=== PATIENT | female | born 1995 | race Caucasian/White ===

== ENCOUNTER 2023-01-09 13:43 | Outpatient (CLI) | payer BC, SELFPAY ==
[2023-01-09 14:57] LABS: Clue Cells No Clue Cells Seen (None Seen); Trichomonas No Trichomonas Seen (None Seen); Yeast No Yeast Seen (None Seen)
[2023-01-09 16:27] LABS: Chlamydia DNA Amplified* NOT DETECTED (No Detected); GC DNA Amplified* NOT DETECTED (No Detected)
== END 2023-01-09 13:44 | disposition home or self-care (01) ==
PROVIDERS: PCP Family Medicine; Visit Provider Family Medicine
DX: N87.9 Dysplasia of cervix uteri, unspecified (principal); Z72.51 High risk heterosexual behavior
CPT/HCPCS: 87210; 87491; 87591

== ENCOUNTER 2024-02-10 00:27 | Outpatient (CLI) | payer BC, SELFPAY ==
[2024-02-10 00:53] VITALS: BP 116/74; PULSE 101
--- NOTE | 2024-02-10 01:41 | PC.OBNST ---
NST Note NST Note Start: 02/09/24 23:53 Freq: ONCE Status: Active Protocol: Document 02/10/24 01:36 AM (Rec: 02/10/24 01:37 AM [id number]) NST Note 3 Para (# of births) 1 EDC 02/04/24 Gestational Age In Weeks & Days 40 Weeks & 6 Days Patient Presented with Complaint(s) of Contractions/cramping Reactive Yes Appropriate for Gestational Age Yes RN AMiner RNC Date 02/10/24 Reactive Yes Appropriate for Gestational Age Yes RN LRingel RN Date 02/10/24 OB NST charge Yes Complete NST Note via Write Note Yes The provider's electronic signature indicates the NST is reactive/appropriate for gestational age. *Note to provider: If an addendum is required, open the patient's chart and click on the note under the Nurse/Allied Health tab.
== END 2024-02-10 01:42 | disposition home or self-care (01) ==
LOC: OB OUT 00:27 → OB 00:28
PROVIDERS: PCP Student in an Organized Health Care Education/Training Program; Visit Provider Family Medicine
DX: O47.1 False labor at or after 37 completed weeks of gestation (principal); Z3A.40 40 weeks gestation of pregnancy
CPT/HCPCS: 59025; G0463

== ENCOUNTER 2024-02-11 00:55 | Inpatient (IN) | payer BC, SELFPAY ==
[2024-02-11] VITALS (40 sets, daily range): BP systolic 63–124; BP diastolic 35–77; PULSE 86–125; RESP 12–20; TEMP 36.5–36.8; O2SAT 98–99; BMI 30.7
[2024-02-11] MEDS: LACTATED RINGERS 1000 ML 1,000 ML 125 ML IV (01:14)
[2024-02-11] MEDS: ROPIVACAINE 0.2% 100 ml 100 ML 12 MG EPIDURAL (03:49)
[2024-02-11] MEDS: PHENYLEPHRINE 100 MCG/ML SYRINGE IVP (03:55)
--- NOTE | 2024-02-11 03:58 | P.ANBPRC_ITS ---
[facility] Medical History (Updated 01/16/23 @ 03:33 by Jesse Bush MD) Perineal rash in female ?R21 - Rash and other nonspecific skin eruption (ICD-10) Endometriosis ?N80.9 - Endometriosis, unspecified (ICD-10) Hemorrhoids ?K64.9 - Unspecified hemorrhoids (ICD-10) Major depression, recurrent ?F33.9 - Major depressive disorder, recurrent, unspecified (ICD-10) Generalized anxiety disorder ?F41.1 - Generalized anxiety disorder (ICD-10) Family History (Updated 01/16/23 @ 03:32 by Jesse Bush MD) Maternal Grandmother Lung cancer Maternal Grandfather COPD (chronic obstructive pulmonary disease) Father High blood pressure Social History (Updated 01/16/23 @ 03:32 by Jesse Bush MD) Narrative: Single, one son, THC What is your current living situation?: I presently have a place to live Problems where you live: no known problems In the past 12 months, utilities in danger of being shut off: no In past 12 months, lack of transportation kept you from medical appts, meetings, work, or getting things needed for daily living: no In the past 12 mos, have been you worried that your food would run out before you had money to buy more?: never true In the past 12 mos, the food you bought just didn't last and you didn't have money to buy more?: never true Smoking Status: Current every day smoker How often does anyone, including family, friends and others, physically hurt you : never How often does anyone, including family, friends and others, insult or talk down to you: never How often does anyone, including family, friends and others, threaten you with h arm: never How often does anyone, including family, friends and others, scream or curse at you: never Little interest or pleasure in doing things: several days Feeling down, depressed, or hopeless: several days Meds Home Medications and Allergies Home Medications Medication Instructions Recorded Confirmed Type PNV 178-FA 180 mcg-om3 35 mg-dha 1 tab PO DAILY 02/10/24 02/11/24 History 25 mg-epa 5 mg-fish oil chew tablet ( Gummies (zinc chelate)) acyclovir 400 mg tablet 400 mg PO 3XD 02/10/24 02/11/24 History famotidine 20 mg tablet 20 mg PO BID 02/10/24 02/11/24 History Allergies Allergy/AdvReac Type Severity Reaction Status Date / Time latex Allergy Intermediate Rash Verified 01/09/23 12:41 Results Vital Signs Vital Signs: Last Vital Signs Temp 97.9 F 02/11/24 00:54 Pulse 102 H 02/11/24 03:58 Resp 20 02/11/24 00:54 BP 105/55 L 02/11/24 03:58 Pulse Ox 98 02/11/24 03:53 Weight: 70.125 kg Height: 151.13 cm Anesthesia Procedures Epidural Insertion Patient Location: OB Start Time: : Stop Time: 04:10 Start Date: 02/11/24 Stop Date: 02/11/24 Reason for Block: procedure for pain Patient Position: sitting Performed By: Anibal Lester Preanesthetic Checklist: IV checked, risks and benefits discussed, surgical consent, monitors and equipment checked, pre-op evaluation, timeout performed and anesthesia consent Prep: chlorhexidine gluconate Monitoring: blood pressure monitoring, continuous pulse oximetry and heart rate Approach: midline Vertebral Space: lumbar (1-5) Epidural Technique: MICHELLE saline Needle Type: Tuohy needle Injection Technique: continuous catheter Needle gauge: 17 Needle Length (cm): 10 cm Needle Insertion Depth (cm): 6 Catheter Gauge: 19 Catheter Type: multi-orifice Catheter at skin depth (cm): 12 Test Dose Result: negative and lidocaine 1.5% with epinephrine 1 to 200,000
[2024-02-11] MEDS: LACTATED RINGERS 1000 ML 1,000 ML 525 ML IV (04:31)
[2024-02-11] MEDS: ePHEDrine sulfate 5 MG/ML inj 10 MG IVP (04:31)
--- NOTE | 2024-02-11 04:57 | PM.OBHPLI ---
OB - H&P: HPI Labor/Induction History of Present Illness Time Seen by Provider: 04:58 Date Seen: 02/11/24 Chief Complaint: The patient is a 28 year old 3 para 1 at 41.0 weeks gestation by LMP and consistent with 8 week ultrasound, who presents with labor. Chief complaint: Maternity : 3 Para: 1 Date of last menstrual period: 04/30/23 Estimated date of delivery: 02/04/24 Gestational age based on last menstrual period: 41 Narrative: Beatriz Jacob is a 28 year old female who presents at 41 weeks for labor. Patient had membranes swept Monday in Clinic. She states she has been sunil on and off since. She has not been able to get much sleep. However, she has otherwise felt well. normal movement. No headache, vision changes, edema. She has not had loss of fluid. Did have some bloody show last evening. patient is a tobacco smoker through this Receive epidural for analgesia and feels well. Finally able to rest. History of Present Dating criteria: based on LMP (consistent with 8 week ultrasound) care: good care Ultrasounds: normal 1st trimester US, normal mid trimester US and abnormal US findings (Growth ultrasound shows potential microsomia, though patient declined level 2. E-consult done with MPP who felt it was reasonable to monitor) complications comment: history of HSV, has been on suppressive therapy Labs Blood type: A (-) negative Rubella: immune RPR/VDLR: nonreactive GBS status: negative HBsAG: negative Review of Systems Status of ROS: Reports: 10 or more systems reviewed and unremarkable except as noted in History and below Meds Home Medications and Allergies Home Medications Medication Instructions Recorded Confirmed Type PNV 178-FA 180 mcg-om3 35 mg-dha 1 tab PO DAILY 02/10/24 02/11/24 History 25 mg-epa 5 mg-fish oil chew tablet ( Gummies (zinc chelate)) acyclovir 400 mg tablet 400 mg PO 3XD 02/10/24 02/11/24 History famotidine 20 mg tablet 20 mg PO BID 02/10/24 02/11/24 History Allergies Allergy/AdvReac Type Severity Reaction Status Date / Time latex Allergy Intermediate Rash Verified 01/09/23 12:41 OB - H&P: Exam Physical Exam: Vital signs: Temp Pulse Resp BP Pulse Ox 97.9 F 115 H 20 79/54 L 98 02/11/24 00:54 02/11/24 04:54 02/11/24 00:54 02/11/24 04:54 02/11/24 03:53 Constitutional: Constitutional: no acute distress (sleeping, wakes easily) Routine HEENT Exam: Head: Present atraumatic and normal inspection Routine Neck Exam: Neck: Present full ROM Detailed Neck Exam: Thyroids: Thyroid: Present normal Routine Chest/Breast/Axilla Exam: Chest wall: Absent tenderness Routine Respiratory Exam: Respiratory: Present CTA bilaterally; Absent crackles or rales Routine Cardiovascular Exam: Cardiovascular: RRR, S1 and S2 Routine Exam: Patient deferred: perineal exam (no labial lesions) Detailed Labor and Delivery Exam: Patient Gravid: Yes Dilation (cm): 7 Tachysystole: No Contraction intensity: Strong/Firm Fetus (Single): Amniotic Membrane Status: intact Heart Rate Baseline: 130 Monitor Accelerations: Present Monitor Decelerations: None Research Program Coordinator Variability: Moderate (6-25) Routine Extremities Exam: Extremities: Present full ROM Routine Back/Spine/Pelvis Exam: Back/Spine: full ROM Routine Skin Exam: Present intact and dry Routine Neurological Exam: Present alert and oriented X3 Routine Psychiatric Exam: Present normal affect (fatigued) OB - Problem Based A/P Additional Plan (1) Post-dates : Problem details: Presenting in labor Status: Acute (2) History of herpes genitalis: Problem details: on suppressive therapy throughout , most recently on Acyclovir Status: Acute (3) Tobacco smoking affecting : Problem details: may need nicotine replacement during labor Status: Acute Plan - expectant management - Hypotension after epidural, will continue to treat PRN - anticipate Delivery/Labor/Induction Plan Plan: expectant management
--- NOTE | 2024-02-11 05:59 | PM.OBPNL ---
Subjective Time Seen by Provider: 05:59 Date Seen: 02/11/24 Narrative: Feeling more pressure with contractions. Is unable to sleep. Objective Exam: Resting comfortably in bed Vital Signs: Last Vital Signs Temp 97.9 F 02/11/24 00:54 Pulse 114 H 02/11/24 05:55 Resp 20 02/11/24 00:54 BP 108/60 02/11/24 05:55 Pulse Ox 98 02/11/24 03:53 Pelvic Exam Dilation (cm): 90 Effacement (%): 95 Station: -2 Contractions Monitor mode: External Contraction Frequency: 2-4 Contraction pattern: Regular Contraction intensity: Strong/Firm Pitocin Rate (mU/min): 0 Assessment Assessment: active labor Station: -2 Amniotic Membrane Status: AROM (meconium fluid) Status: Category l Heart Rate Baseline: 130 Correction Variability: Moderate (6-25) Monitor Accelerations: Present Monitor Decelerations: None Labor Progress: Progressing well without intervention. 9 cm. AROM now of meconium stained fluid. Plan Plan: -ongoing expectant management - Dr. Mariscal called for meconium fluid for pediatric back up at delivery - anticipate
[2024-02-11] MEDS: OXYTOCIN 30 unit/500 ML in NS 30 UNIT/500 ML BAG 300 UNIT IVPB (07:00)
--- NOTE | 2024-02-11 07:15 | W.PM.OBVAGDE ---
OB Procedure Vag Delivery Mother Details Mother Details: The patient is a 28 year-old, 3, Para 1, admitted on 02/11/24 at Days gestation. : 3 Para: 1 Weeks Gestation: 41 Admission Date: 02/11/24 Additional Details Amniotic Membrane Status: AROM Amniotic Membrane Rupture Date: 02/11/24 Amniotic Membrane Rupture Time: 05:51 Amniotic Membrane Fluid Description: Meconium Stained Analgesia/Anesthesia Type: Epidural Waterbirth: No Pitcoin: No Intrapartal Events: None and Labor Augmentation (AROM) Delivery augmentation: rupture of membranes Labor Onset: 01:00 Complete: 06:42 Pushin:42 Heart: heart tones during second stage were reassuring. Had decels to 100 with pushing but would recover between. Good variability. Delivery Details Delivery Date: 02/11/24 Delivery Time: 06:59 Route of delivery: Infant Gender: Female Infant Viability: Alive; Heart Rate Present Position at Delivery: OA Delivery Details: Patient presented in active labor at 3-4 CM. She progressed well without intervention. Had epidural for analgesia. We did AROM at 9 cm with light meconium fluid. Patient felt a lot of pressure with contractions. Patient had thin anterior lip that was reduced with first push. Patient pushed very effectively, delivering a viable female over intact perineum vi spontaneous vaginal delivery. Baby was delivered onto maternal abdomen and was stimulated by nursing that was in attendance. Dr. Mariscal was in attendence for pediatric care for meconium fluid, but did not have to intervene. Cord was clamped and cut after 30-60 second delay. cord blood was collected for Rh negative status. Placenta delivered spontaneously. Patient had no lacerations. ? Infant weight pending. 1 Minute Interval Total Score: 8 5 Minute Interval Total Score: 9 Additional Details Shoulder Dystocia: No Placenta Delivery Time: 07:07 Placental Delivery Description: Spontaneous Procedure Done: Global Blood Loss: 20 Laceration: None Cord Vessel Description: 3 Vessels Event Summary Status: Mother and infant were stable after delivery. Disposition: no change
[2024-02-11] MEDS: ACETAMINOPHEN 500 MG TABLET 1000 MG PO (16:04)
--- NOTE | 2024-02-11 18:51 | PM.ANPOST ---
Post Anesthesia Note Post Anesthesia Note Patient seen: Inpatient Respiratory Status: adequate Cardiovascular Status: adequate Mental Status: baseline Pain: adequate Temp: baseline Anesthetic awareness: N/A Complications: none Follow care: none
[2024-02-11] MEDS: IBUPROFEN 600 MG TABLET PO (20:40)
[2024-02-12 00:21] VITALS: BP 101/57; PULSE 106; RESP 12; TEMP 36.6
[2024-02-12 04:01] VITALS: BP 109/68; PULSE 99; RESP 16; TEMP 37.1
[2024-02-12 06:23] LABS: Hemoglobin* 11.9 gm/dL (12.0-16.0)
--- NOTE | 2024-02-12 07:33 | P.DS_ITS ---
DS: Providers Provider Date Seen: 02/12/24 Date of admission: 02/11/24 00:55 Primary care physician: Che Brennan PA-C Admitting Clinician: Loren Basurto MD Attending Physician on discharge: Loren Basurto MD Date of Discharge: 02/12/24 DS: Diagnosis Discharge Diagnosis (1) Vaginal delivery: Status: Acute Exam Const: Vital Signs, click to edit/add: Vital Signs - 24 hr 02/11/24 07:55 02/11/24 08:10 02/11/24 08:25 Temperature Pulse Rate 96 97 99 Pulse Rate [Blood Pressure Cuff] Respiratory Rate Blood Pressure 105/58 L 103/57 L 109/61 Blood Pressure [Le ft Arm] 02/11/24 08:42 02/11/24 08:55 02/11/24 12:34 Temperature 98.1 F Pulse Rate 96 97 Pulse Rate [Blood Pressure Cuff] 94 Respiratory Rate 16 Blood Pressure 108/65 124/72 Blood Pressure [Le ft Arm] 114/71 02/11/24 16:01 02/11/24 20:31 02/12/24 00:21 Temperature 97.7 F 98.3 F 97.9 F Pulse Rate Pulse Rate [Blood Pressure Cuff] 86 120 H 106 H Respiratory Rate 16 12 12 Blood Pressure Blood Pressure [Le ft Arm] 117/76 122/70 101/57 L 02/12/24 04:01 Temperature 98.7 F Pulse Rate Pulse Rate [Blood Pressure Cuff] 99 Respiratory Rate 16 Blood Pressure Blood Pressure [Le ft Arm] 109/68 Common normals: no apparent distress and average body habitus HENMT: Common normals: normocephalic Head and scalp: normocephalic Eye: Common normals: PERRL and EOMs intact bilaterally Pupil: PERRL Resp: Common normals: normal respiratory effort GI: Common normals: Normal to inspection, nondistended, normoactive bowel sounds present and soft to palpation Palpation: soft Other: uterus firm at umbilicus. Psych: Common normals: mental status grossly normal and thought process normal Thought process: normal thought process OB - DS: Summary Hospital Course Hospital Course: The patient is a 28 year old G 2 P 2 at 41 weeks gestation that was admitted to the Center on 02/11/24 for active labor. She had an uncomplicated vaginal delivery. She delivered a viable female . She is breast feeding. the patient has done well. Peripartum Data Infant delivery method: Vaginal Laceration description: None complications: none [place] Infant Gender: Female Discharge Plan: Home Status at Discharge Overall status at discharge: patient is progressing back to baseline Time Spent with Patient Time attestation: Total time spent providing and/or coordinating discharge services: Discharge Plan Discharge Disposition: Home, Self-Care Date of Admission: 02/11/24 00:55 Attending Physician on Admission: Loren Basurto Primary Care Provider: Che Brennan Condition: Improved Anticipated Discharge Date/Time: 02/12/24 07:35 Discharge Medications: Continued famotidine 20 mg tablet 20 mg PO BID Gummies(zinc chelate) 180 mcg-35 mg- 25 mg-5 mg tablet,chewable 1 tab PO DAILY Discontinued acyclovir 400 mg tablet 400 mg PO 3XD Discharge Orders: Discharge Order (Routine); Ordered 02/12/24 Ordered By: Sade Gaston Patient Education: OB /Breast Feeding Activity Level: No Restrictions Activity Detail: nothing per vagina x6 weeks. Discharge Diet: Regular Follow Up Appointments: Che Brennan, PAFredC [Primary Care Provider] - (Follow up with Dr. Basurto for 6 week exam. ) Forms: [employer] Info Instructions
[2024-02-12 07:46] VITALS: BP 116/77; PULSE 64; RESP 16; TEMP 36.7
[2024-02-13 19:20] LABS: Rapid Plasma Reagin (RPR) Non Reactive (Non Reactive)
== END 2024-02-12 08:14 | disposition home or self-care (01) | DRG 560 ==
LOC: OB OUT 00:55 → OB 00:55
PROVIDERS: Admitting Provider Family Medicine; PCP Student in an Organized Health Care Education/Training Program; Visit Provider Family Medicine
DX: O48.0 Post-term pregnancy (principal); Z3A.41 41 weeks gestation of pregnancy; Z37.0 Single live birth; O98.32 Other infections with a predominantly sexual mode of transmission complicating childbirth; B00.9 Herpesviral infection, unspecified; O26.893 Other specified pregnancy related conditions, third trimester; Z67.11 Type A blood, Rh negative; O99.334 Smoking (tobacco) complicating childbirth; O77.0 Labor and delivery complicated by meconium in amniotic fluid
CPT/HCPCS: 01967; 36415; 85018; 86592; A9270; J0665; J2371; J2795; J7120